=== PATIENT | male | born 1960 | race Caucasian/White ===

== ENCOUNTER 2019-05-20 06:02 | Inpatient (IN) ==
--- NOTE | 2019-05-14 14:51 | Anesthesiology Consultation ---
Date of Service May 14, 2019 Assessment & Plan (1) Encounter for pre-operative examination: Chart Review Chart Review: Acceptable Risk for Surgery and Patient NOT seen in Pre Admission Testing History Surgery Operation Date: 05/20/19 07:15 Proposed Procedures p Navigational Bronchoscopy with ICG with Marking, - Jerrod Basurto MD, FACS s Left Robotic Video Assisted Thoracoscopy with Left Upper Lobe Wedge Resection - Jerrod Basurto MD, FACS Height/Weight Height: 5 ft 8 in Weight: 56.245 kg Allergies Allergy/AdvReac Type Severity Reaction Status Date / Time codeine AdvReac Mild Vomiting Verified 05/14/19 10:26 Medications Home Medications Medication Instructions Recorded Confirmed Last Taken Culturelle Probiotics 1 cap PO DAILY 04/21/19 05/14/19 04/29/19 13:00 Spiriva Respimat 1 puff INHALATION QAM 04/21/19 05/14/19 04/29/19 09:00 albuterol sulfate [ProAir HFA] 1 puff INHALATION Q6H PRN 04/21/19 05/14/19 04/29/19 12:00 carvedilol 3.125 mg PO BID 04/21/19 05/14/19 04/30/19 02:45 fluticasone propion-salmeterol 1 inh INHALATION BID 04/21/19 05/14/19 04/29/19 09:00 [Advair Diskus] ipratropium-albuterol 3 ml INHALATION BID 04/21/19 05/14/19 04/30/19 02:45 pantoprazole [Protonix] 40 mg PO QDL 04/21/19 05/14/19 04/30/19 02:45 sucralfate [Carafate] 1 g PO ACHS 04/21/19 05/14/19 04/29/19 17:00 Past Medical History Medical History Barretts esophagus Cardiomyopathy EF 45% per echo 01/2016. Normal LV function noted on 2014 cardiac cath. Chronic obstructive pulmonary disease Chest CT 03/2019 notes severe emphysema. Patient reported to PCP 01/2019 using nebulizer BID and rare rescue inhaler unless doing strenuous activity. Pt follows with pulm in [place]. Fracture, mandibular NO SURGERY. ~1998. NO PROBLEMS OPENING JAW. GERD (gastroesophageal reflux disease) Lung cancer POSSIBLE, BRONCHOSCOPY DID NOT GIVE DEFINITE RESULT. Past Family History Family History Other No pertinent family history Past Surgical History Surgical History History of bronchoscopy 04/30/19 MAC 3, ETT 8.0, grade view I. Smooth IV induction, atraumatic DL x 1 intubation. History of cardiac cath For dyspnea and abnormal stress test. No intervention performed, "angiographically normal coronaries." History of colonoscopy History of esophagogastroduodenoscopy (EGD) History of nasal septoplasty History of open reduction and internal fixation (ORIF) procedure LEFT FEMUR History of tonsillectomy S/P hardware removal LEFT FEMUR Social History Smoking Status: Former smoker tobacco type: cigarettes Smoking cigarettes per day: 1 PPD X 45 YEARS Do You Dip or Chew Tobacco: No Smoking End Date: QUIT 02/13/2016 Hx Alcohol Use: Yes Alcohol type: beer alcohol intake frequency: a few times a week Hx Substance Use: Yes substance use type: marijuana Last Used Substance Other:: 1-2 MONTHS AGO Testing Laboratory Results 04/23/19 WBC: 5.15 H/H: 16.1/46.2 PLATELETS: 223 SODIUM: 135 POTASSIUM: 4.2 CHLORIDE: 102 CO2: 32 BUN: 12 CREATININE: 0.90 GLUCOSE: 98 Electrocardiogram Date: 04/23/19 Findings: + NSR @ (66) Rightward axis. Nonspecific ST abnormality. Chest X-Ray Date: 04/30/19 FINDINGS: The heart is normal in size. No pleural effusions. No pneumothorax. The lungs are hyperexpanded with moderate emphysematous change. Mild chronic interstitial thickening persists. Left upper lobe nodular density, unchanged. This is better appreciated on the recent chest CT. IMPRESSION: 1. No pneumothorax. 2. Moderate emphysema. 3. Left upper lobe nodular density is again noted. Echocardiogram Date: 02/20/16 EF: 45% Mildly decreased left ventricular function. Normal right ventricular size with normal function. Normal left atrium. Normal right atrium. Normal, trileaflet aortic valve. Normal mitral and tricuspid valves. Mild TR. Mildly increased PASP at 35 mmHg. Normal pulmonic valve. Normal aorta. Stress Test Date: 12/19/14 Resting EF: 55% Stress EKG negative for myocardial ischemia at 87%. Stress echo positive for new wall motion normality at 87% of maximum predicted heart rate. Stress echo shows improvement in the LVEF with stress but with new wall motion of normalities as detailed above given the technical limitation of study (anterior hypokinesis and septal dyskinesis). *pt had subsequent cardiac cath, no stents placed. Cardiac Catheterization Date: 03/09/15 Angiographically normal coronary arteries. Normal LV function. Normal LVEDP. Other Testing Chest CT 04/23/19 IMPRESSION: 1. No change in an irregular 3 x 1 cm left upper lobe opacity since initial chest CT of January 22, 2019. This is indeterminate however a neoplasm is the diagnosis of exclusion. 2. 7 mm right upper lobe nodule which is indeterminate but suspicious for a small neoplasm. 3. Moderate to severe emphysema. 4. No thoracic lymphadenopathy.
[~2019-05-20 06:02] MED LIST: LR 15ML/HR IV SCH
[2019-05-20] MEDS ORDERED: GLYCOPYRROLATE 0.2 MG/ML VIAL ONE (06:46)
[2019-05-20] MEDS ORDERED: ROCURONIUM BROMIDE 10 MG/ML 5 ML VIAL ONE ×2 (06:46→08:56)
[2019-05-20] MEDS ORDERED: ONDANSETRON INJ 2 MG/ML 2 ML VIAL ONE (06:46)
[2019-05-20] MEDS ORDERED: PROPOFOL IV EMULSION 10 MG/ML 20 ML VIAL IV ONE (06:46)
[2019-05-20] MEDS ORDERED: fentaNYL citrate 100 MCG/2 ML VIAL ONE ×2 (06:46→10:48)
[2019-05-20] MEDS ORDERED: DEXAMETHASONE SOD INJ 4 MG/ML VIAL ONE (06:46)
[2019-05-20] MEDS ORDERED: MIDAZOLAM HCL 1 MG/ML 2ML VIAL ONE (06:46)
[2019-05-20] MEDS ORDERED: LIDOCAINE HCL 2% 2 ML VIAL/AMP(20MG/ML) INFIL ONE (06:46)
[2019-05-20] MEDS ORDERED: NEOSTIGMINE METHYLSULFATE 5 MG/5 ML SYR ONE (06:46)
--- NOTE | 2019-05-20 06:49 | History & Physical Bridge Note ---
Date of Service May 20, 2019 History & Physical Bridge Note I have examined the patient, reviewed the History & Physical and in the interval since the performance of the History & Physical I have noted the following changes of clinical significance: no changes noted
[2019-05-20] MEDS ORDERED: BUPIVACAINE LIPOSOME 1.3% 266 MG/20 ML VIAL ONE (06:59)
[2019-05-20] MEDS ORDERED: BUPIVACAINE 0.5 % 5 MG/1 ML MPF 30ML VIAL ONE (06:59)
[2019-05-20] MEDS ORDERED: SODIUM CHLORIDE 0.9% PF 50 ML VIAL ONE (06:59)
[2019-05-20] MEDS ORDERED: PROMETHAZINE HCL 6.25 MG in SODIUM CHLORIDE 0.9% 50 ML IV PRN (07:09)
[2019-05-20] MEDS ORDERED: ePHEDrine sulfate 50 MG/ML AMP IV PRN (07:09)
[2019-05-20] MEDS ORDERED: ONDANSETRON INJ 2 MG/ML 2 ML VIAL IV PRN ×2 (07:09→12:40)
[2019-05-20] MEDS ORDERED: HYDROmorphone INJ 2 MG/ML SYR/VIAL IV PRN (07:09)
[2019-05-20] MEDS ORDERED: ATROPINE SULFATE 0.1 MG/ML 10ML SYR IV PRN (07:09)
[2019-05-20] MEDS ORDERED: INDOCYANINE GREEN 25 MG/10 ML INJ ONE (07:58)
--- NOTE | 2019-05-20 08:50 | Fluoroscopy Report ---
FL chest 1V frontal CLINICAL HISTORY: NAVIGATIONAL BRONCH IN OR COMPARISON STUDY: 04/30/2019 FLUOROSCOPY TIME: 54 seconds. NUMBER OF FLUOROSCOPIC IMAGES: 1 FINDINGS: A single intraprocedural fluoroscopic spot image demonstrates a bronchoscope with a left up per lobe catheter. IMPRESSION: Single intraprocedural image demonstrating a bronchoscope with a left upper lobe cathete r. Electronically signed by: Kalia Jones M.D. 05/20/2019 8:49 AM
[2019-05-20] MEDS ORDERED: CLINDAMYCIN 600 MG in DEXTROSE 5% 50 ML IV SCH (10:15)
--- NOTE | 2019-05-20 10:47 | Post Operative Brief Note ---
Immediate Post Op Note v1 Date of Surgery May 20, 2019 Pre & Post Diagnosis Operation Date: 05/20/19 07:35 Pre-Op Diagnosis: LEFT LUNG MASS Post-Op Diagnosis: APPARENT BENIGN LEFT UPPER LOBE LUNG MASS Procedure Operation Date: 05/20/19 07:35 Actual Procedures p Navigational Bronchoscopy with ICG with Marking, - Jerrod Basurto MD, FACS s Left Robotic Video Assisted Thoracoscopy with Left Upper Lobe Wedge Resection(Left) - Jerrod Basurto MD, FACS Surgeon Jerrod Basurto MD, FACS Tub Operator Beni HERNÁNDEZ Estimated Blood Loss 20 Findings Consistent with Post-Op Diagnosis Drains Chest Tube
[2019-05-20] MEDS ORDERED: METOCLOPRAMIDE HCL INJ 5 MG/ML 2 ML VIAL IV ONE (11:05)
--- NOTE | 2019-05-20 11:18 | XRay Report ---
XR chest 1V portable CLINICAL HISTORY: 58 years-old Male presenting with left wedge resection. TECHNIQUE: Portable upright AP view of the chest was obtained. COMPARISON: 04/30/2019. FINDINGS: Cardiomediastinal silhouette normal. Lungs are hyperinflated as on prior. Suture margins now noted al charlie the left upper lung with a small left apical pneumothorax. A large bore left pleural drain is pos itioned at the left apex. Right lung and pleural space clear. Soft tissue emphysema noted along the b ase of the left neck. Osseous structures normal. Upper abdomen normal. IMPRESSION: 1. Small left apical pneumothorax with postsurgical changes of the left apex. 2. Left pleural drain in place. 3. Underlying emphysema. Electronically signed by: Bladimir Lozoya M.D. 05/20/2019 11:16 AM
[2019-05-20] MEDS: fentaNYL citrate 100 MCG/2 ML VIAL IV PRN ×2 (11:25→11:33)
--- NOTE | 2019-05-20 11:56 | Anesthesiology Progress Note ---
Date of Service May 20, 2019 Anesthesia Post Procedure Vital Signs Vital Signs: Temp Pulse Pulse Resp BP Pulse Ox 05/20/19 11:35 36.5 C 88 12 137/77 100 05/20/19 11:25 93 H 19 124/91 100 05/20/19 11:15 94 H 15 121/108 H 100 05/20/19 11:06 36.0 C L 98 H 28 H 124/91 100 05/20/19 06:19 36.6 C 81 20 148/89 H 99 Pain Intensity Left Lateral Chest: Pain Intensity: 4 Transfer of Care Handoff Completed per policy Notes Mental Status: alert / awake / arousable Patient Amnestic to Procedure: Yes Nausea / Vomiting: adequately controlled Pain: adequately controlled Airway Patency, RR, SpO2: stable & adequate BP & HR: stable & adequate Hydration State: stable & adequate Anesthetic Complications: no major complications apparent
[2019-05-20] MEDS ORDERED: ALBUTEROL HFA 8 GM INHALER INH PRN (13:00)
[2019-05-20] MEDS: ACETAMINOPHEN 1,000 MG/100 ML VIAL IV SCH ×2 (13:58→20:07)
[2019-05-20] MEDS: PANTOprazole 40 MG TAB PO SCH (13:58)
[2019-05-20] MEDS: SUCRALFATE 1 GM TAB PO SCH ×3 (13:58→20:19)
[2019-05-20] MEDS: METOCLOPRAMIDE HCL INJ 5 MG/ML 2 ML VIAL IV SCH ×2 (14:00→20:20)
[2019-05-20] MEDS: D5W AND 1/2NSS 1,000 ML IV SCH (15:10)
[2019-05-20] MEDS: ALBUT/IPRATROP 3MG/0.5MG NEB 3 ML VIAL INH SCH (19:25)
[2019-05-20] MEDS: FLUTICASONE/SALMETEROL 250/50 (ADVAIR) 14 PUFF/1 INHALER INH SCH (20:08)
[2019-05-20] MEDS: CARVEDILOL 3.125 MG TAB PO SCH (20:19)
[2019-05-20] MEDS: DOCUSATE SODIUM 100 MG CAP PO SCH (20:19)
--- NOTE | 2019-05-20 20:47 | Operative Report ---
DATE OF OPERATION: 05/20/2019 DATE OF PROCEDURE: 05/20/2019 PREOPERATIVE DIAGNOSES: 1. Bilateral lung nodules, left greater than right. 2. Severe bullous emphysema. 3. Long history of cigarette smoking. POSTOPERATIVE DIAGNOSIS: Apparent granulomatous disease, left upper lobe. PROCEDURE: 1. Electromagnetic navigational bronchoscopy with marking of left upper lobe mass with indocyanine green dye. 2. Robot-assisted left thoracoscopy with wedge resection of mass located with fluorescence for indocyanine green dye. 3. Lymph node biopsy. SURGEON: Jerrod Basurto MD DIRECTOR [employer]: EDGAR Plunkett (MrJaclyn Rosanne was present for the entire case and was at the patient's bedside while I was at the console). ANESTHESIA: General anesthesia with endotracheal intubation. INDICATIONS FOR PROCEDURE AND FINDINGS: This is an unfortunate 58-year-old male began smoking at age 6, quit about 2 years ago. 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 Needless to say, he looks older than his stated age. He has terrible lung function with terrible pulmonary function studies, found to have bilateral upper lobe masses. The right was very small, left one is a bit larger and a bit more concerning in appearance. I performed a navigational bronchoscopy and endobronchial ultrasound, which showed no evidence of lymph node metastases and we did not get a diagnosis in either mass. There were some inflammatory cells. I presented this patient at our multidisciplinary cancer conference and there was a consensus at the group that we should wedge out this left upper lobe nodule if he probably would tolerate it. We would then continue to follow this much smaller right upper lobe nodule. On 05/20/2019, the patient underwent an uncomplicated electromagnetic navigational bronchoscopy, although I did see a mucosal abnormality in the left mainstem bronchus, I biopsied this with not only a forceps, but also a cryoprobe. We had bleeding from this, controlled with the cryoprobe. I then performed the registering the airways and did an electromagnetic navigational bronchoscopy which popping right out to this mass. We injected the indocyanine dye. We then currently been performed a wedge resection of this mass. We were able to locate it with the fluorescence. This was sent for frozen section. We sent 3 different specimens off and all of them came back as apparent granulomatous disease with no evidence of malignancy, although they did see abnormalities. I felt we had removed this in its entirety. I did biopsy on couple of lymph nodes. He tolerated it very well. He was extubated in the room with negligible blood loss and really did not have much of an air leak. PROCEDURE IN DETAIL: The patient was brought to the operating room and laid in supine position. General anesthesia was induced and endotracheal intubation was performed. After appropriate timeout had been called and antibiotics given, a fiberoptic bronchoscope was placed into the endotracheal tube. Upon going down, I was a bit surprised to see an abnormality in the left mainstem bronchus. I did not notice this before. I did a forceps biopsy of this and it is quite bled rather well. I saw no other endobronchial abnormalities. Using a cryoprobe, I went down and froze this tissue and I did take some biopsies, not only with the forceps, but with a cryoprobe also and then controlled the bleeding with the cryoprobe. We irrigated this out and after registering the airways, I then went out to the upper lobe bronchus and was able to get to the mass quite nicely. There was an abnormality noted on the radial ultrasound. We then injected 0.5 mL of indocyanine green dye with 0.5 mL of air and withdrew the needle from the navigational probe. The fiberoptic bronchoscope was then removed. There was no further bleeding. The patient was switched over to a double lumen tube. This now properly placed. The patient was placed in the right lateral decubitus position. The left chest was prepped and draped in usual sterile fashion. Four different incisions were made from the robot with two 8 mm ports anterior and posterior and a 8.5 mm port left in the midline. We then made an assistant director of financial aid port above the diaphragm anteriorly. It should be noted that we did mix Exparel 266 mg in 20 mL of solution with 30 mL of 0.5% Marcaine and 250 mL of normal saline injected in each of the incisions. Upon entering the chest, we did not see much in the way of adhesions, so we then performed a block with this Exparel solution intrathoracically from the 2nd to the 11th rib. After doing this, just a few adhesions, we took down sharply without difficulty. I then the lower lobe and the upper lobe posteriorly and after some close inspection, we found the indocyanine green dye. We wedged out 3 separate areas to make sure we included this and the frozen section showed possible granulomatous disease, but no evidence of malignancy. We stopped here. Really not have much of an air leak. I did biopsy level 5 lymph node and this looked benign. A 24-Faroese chest tube was placed through separate stab wound and directed towards the apex and the other incisions were closed with 0 Vicryl for the muscle layers and 4-0 Monocryl in running subcuticular fashion. We really did not have much of an air leak and his chest x-ray looked quite good after surgery. He tolerated well. I attest to the content of the Intraoperative Record and any orders documented therein. Any exceptions are noted below. MTDD
[2019-05-21] MEDS: D5W AND 1/2NSS 1,000 ML IV SCH ×2 (00:24→10:15)
[2019-05-21] MEDS: ACETAMINOPHEN 1,000 MG/100 ML VIAL IV SCH ×2 (04:34→12:38)
[2019-05-21] MEDS: METOCLOPRAMIDE HCL INJ 5 MG/ML 2 ML VIAL IV SCH (04:34)
[2019-05-21] MEDS ORDERED: CLINDAMYCIN 600 MG/54 ML BAG IV SCH (06:00)
--- NOTE | 2019-05-21 06:54 | XRay Report ---
XR chest 1V portable CLINICAL HISTORY: left wedge resection postoperative COMPARISON STUDY: 05/20/2019 FINDINGS: Lungs are grossly clear. Increased density medial aspect left apex is unchanged. There is a minimal left apical residual pneumothorax. IMPRESSION: 1. Improved left apical pneumothorax with a minimal to mild residual. 2. Unchanging postoperative changes left apex. The above report was generated using voice recognition software. It may contain grammatical, syntax or spelling errors. Electronically signed by: Jose Hull M.D. 05/21/2019 6:52 AM
[2019-05-21] MEDS: SUCRALFATE 1 GM TAB PO SCH ×4 (07:14→20:44)
[2019-05-21] MEDS: MoRPHine SULFATE 2 MG/ML CARP IV PRN (07:15)
[2019-05-21 07:22] LABS: Hematocrit (blood only) 37.7 % (42-52); Hemoglobin 13.1 g/dL (14.0-18.0); Mean Corpuscular Hgb Conc 34.7 g/dL (32-36); Mean Corpuscular Volume 93.3 fL (80-100); Mean Platelet Volume 8.9 fL (7.4-10.4); Platelet Count 259 K/uL (130-400); RDW Coefficient of Variation 12.5 % (11.5-14.5); RDW Standard Deviation 42.4 fL (36.4-46.3); Red Blood Count 4.04 M/uL (4.7-6.1); White Blood Count 11.91 K/uL (4.8-10.8)
[2019-05-21] MEDS: ALBUT/IPRATROP 3MG/0.5MG NEB 3 ML VIAL INH SCH ×2 (07:23→19:12)
[2019-05-21 07:44] LABS: Prothrombin Time 10.6 Seconds (9.0-12.0)
[2019-05-21 07:52] LABS: Creatinine Clr Calc Pharmacy 79.3 ml/min; Est GFR (African American) 113.9; Est GFR (Non-African American) 98.3
[2019-05-21] MEDS: TIOTROPIUM BROMIDE 5 PUFF/90 MCG INH INH SCH (08:09)
[2019-05-21] MEDS: ENOXAPARIN INJ 40 MG/0.4 ML SYR SQ SCH (08:10)
[2019-05-21] MEDS: DOCUSATE SODIUM 100 MG CAP PO SCH ×2 (08:11→20:44)
[2019-05-21] MEDS: FLUTICASONE/SALMETEROL 250/50 (ADVAIR) 14 PUFF/1 INHALER INH SCH ×2 (08:11→20:44)
[2019-05-21] MEDS: CARVEDILOL 3.125 MG TAB PO SCH ×2 (08:11→20:44)
--- NOTE | 2019-05-21 08:30 | Progress Note ---
DATE: 05/21/2019 Mr. Cash was seen today on 05/21/2019. Yesterday, I performed an electromagnetic navigational bronchoscopy with marking with indocyanine green dye. I then performed a wedge resection with thoracoscopy with fluorescence to locate this nodule. It turns out that this is apparently granulomatous disease. We took generous samples. He has tolerated this surprisingly well. He is on room air. He is ambulating in the hallway. He still has a small air leak, so his tube will have to be in for another day or two. I am quite pleased with him. He did much better than I expected with this rather poor lung function. I am also quite pleased that we are dealing with a granuloma. His x-ray looks quite good today.
[2019-05-21] MEDS ORDERED: LACTOBAC RHAMNOSUS GG INULIN PO SCH (09:00)
--- NOTE | 2019-05-21 10:54 | Anesthesiology Progress Note ---
Date of Service May 21, 2019 Anesthesia Post Procedure Vital Signs Vital Signs: Temp Pulse Pulse Pulse Resp BP BP 05/21/19 09:30 36.6 C 71 16 112/71 05/21/19 07:23 83 16 05/21/19 05:29 36.9 C 89 14 108/70 05/21/19 01:34 36.8 C 85 14 101/64 05/20/19 23:30 36.8 C 91 H 14 103/59 L 05/20/19 21:43 36.8 C 95 H 18 98/57 L 05/20/19 20:15 98 H 20 107/66 05/20/19 20:10 05/20/19 19:53 36.5 C 103 H 18 107/70 05/20/19 19:25 108 H 16 05/20/19 17:38 37 C 105 H 18 113/76 05/20/19 16:38 36.8 C 99 H 18 105/74 05/20/19 15:30 36.5 C 98 H 18 102/68 05/20/19 14:54 36.4 C L 105 H 18 98/65 L 05/20/19 13:37 36.9 C 108 H 18 106/68 05/20/19 12:30 36.4 C L 92 H 16 120/80 05/20/19 12:08 88 14 125/89 05/20/19 11:55 90 15 125/93 05/20/19 11:45 36.5 C 88 12 137/77 05/20/19 11:35 90 13 124/83 05/20/19 11:25 93 H 19 124/91 05/20/19 11:15 94 H 15 121/108 H 05/20/19 11:06 36.0 C L 98 H 28 H 124/91 Pulse Ox Pulse Ox 05/21/19 09:30 96 05/21/19 07:23 93 05/21/19 05:29 92 05/21/19 01:34 93 05/20/19 23:30 93 05/20/19 21:43 93 93 05/20/19 20:15 92 05/20/19 20:10 92 05/20/19 19:53 94 05/20/19 19:25 95 05/20/19 17:38 95 05/20/19 16:38 94 05/20/19 15:30 95 06/27/19 14:54 95 05/20/19 13:37 94 05/20/19 12:30 96 05/20/19 12:08 100 05/20/19 11:55 100 05/20/19 11:45 100 05/20/19 11:35 100 05/20/19 11:25 100 05/20/19 11:15 100 05/20/19 11:06 100 Pain Intensity Left Lateral Chest: Pain Intensity: 7 Notes Mental Status: alert / awake / arousable and participated in evaluation Patient Amnestic to Procedure: Yes Nausea / Vomiting: adequately controlled Pain: adequately controlled Airway Patency, RR, SpO2: stable & adequate BP & HR: stable & adequate Hydration State: stable & adequate Anesthetic Complications: no major complications apparent and Pt Satisfied with anesthetic care
[2019-05-21] MEDS: PANTOprazole 40 MG TAB PO SCH (11:38)
[2019-05-21] MEDS: ACETAMINOPHEN 325 MG TAB PO SCH ×2 (18:12→23:43)
[2019-05-22] MEDS: ALBUTEROL 0.083% NEBU SOLN 3 ML VIAL NEB PRN ×2 (04:58→14:27)
[2019-05-22] MEDS: ACETAMINOPHEN 325 MG TAB PO SCH ×4 (05:33→23:41)
[2019-05-22] MEDS: OXYCODONE HCL IR 5 MG TAB (IMMEDIATE RELEASE) PO PRN ×3 (06:05→14:50)
[2019-05-22] MEDS: ALBUT/IPRATROP 3MG/0.5MG NEB 3 ML VIAL INH SCH ×2 (07:13→19:04)
--- NOTE | 2019-05-22 07:29 | XRay Report ---
SINGLE VIEW CHEST CLINICAL HISTORY: Status post left-sided pulmonary resection. FINDINGS: An AP, portable, upright chest radiograph is compared to study dated 05/21/2019 and correlat ed with chest CT dated 04/23/2019. The examination is degraded by portable technique and apical lordot ic positioning. The cardiomediastinal silhouette is unremarkable, noting atherosclerotic calcificat ion of the thoracic aorta. Advanced emphysema and chronic interstitial thickening are similar to prev ious. There is postoperative change and volume loss consistent with left upper lobe resection. A ches t tube at the left apex is unchanged in position. There is likely trace residual left apical pneumoth orax. Suture material projects over the left upper lobe. No airspace consolidation or large pleural e ffusion is seen. The bony thorax is grossly intact. Subcutaneous emphysema is noted along the left ch est wall and in the left lower neck. IMPRESSION: 1. Advanced emphysema and volume loss from left upper lobe pulmonary resection. 2. There is likely trace residual left apical pneumothorax. 3. No airspace consolidation or large pleural effusion is identified. Electronically signed by: Maximus Jacobsen M.D. 05/22/2019 7:28 AM
[2019-05-22] MEDS: SUCRALFATE 1 GM TAB PO SCH ×4 (07:56→20:22)
[2019-05-22] MEDS: DOCUSATE SODIUM 100 MG CAP PO SCH ×2 (07:56→20:22)
[2019-05-22] MEDS: ENOXAPARIN INJ 40 MG/0.4 ML SYR SQ SCH (07:57)
[2019-05-22] MEDS: FLUTICASONE/SALMETEROL 250/50 (ADVAIR) 14 PUFF/1 INHALER INH SCH ×2 (07:58→20:22)
[2019-05-22] MEDS: CARVEDILOL 3.125 MG TAB PO SCH ×2 (07:58→20:22)
[2019-05-22] MEDS: TIOTROPIUM BROMIDE 5 PUFF/90 MCG INH INH SCH (07:59)
[2019-05-22] MEDS: PANTOprazole 40 MG TAB PO SCH (11:04)
--- NOTE | 2019-05-22 11:34 | Progress Note ---
DATE: 05/22/2019 Mr. Cash was seen today on 05/22/2019. Two days ago, the patient underwent a robotic wedge resection and after the navigational bronchoscopy for what turned out to be a probable granulomatous disease. The fungal stains have been negative for this. On room air, the patient is 93%, although he had some trouble last night. He stated he was coughing quite a bit. The narcotics and then a nebulizer treatment helped him to cough up some bloody sputum and he felt much better. He has decreased breath sounds, but no wheezing. He still has a tiny air leak from his chest tube and we will want to keep that in, but the patient is ambulating quite a bit, I think he will do well with this. MTDD
[2019-05-22] MEDS: MoRPHine SULFATE 2 MG/ML CARP IV PRN (20:12)
[2019-05-23] MEDS: OXYCODONE HCL IR 5 MG TAB (IMMEDIATE RELEASE) PO PRN ×4 (03:42→23:37)
[2019-05-23 05:24] LABS: Hematocrit (blood only) 36.3 % (42-52); Hemoglobin 12.4 g/dL (14.0-18.0); Mean Corpuscular Hgb Conc 34.2 g/dL (32-36); Mean Platelet Volume 8.9 fL (7.4-10.4); Platelet Count 231 K/uL (130-400); RDW Coefficient of Variation 12.7 % (11.5-14.5); RDW Standard Deviation 43.8 fL (36.4-46.3); Red Blood Count 3.82 M/uL (4.7-6.1); White Blood Count 8.03 K/uL (4.8-10.8)
[2019-05-23 05:33] LABS: Creatinine Clr Calc Pharmacy 101.1 ml/min; Est GFR (African American) 125.8; Est GFR (Non-African American) 108.6
[2019-05-23] MEDS: ACETAMINOPHEN 325 MG TAB PO SCH ×4 (05:56→23:37)
[2019-05-23] MEDS: ALBUT/IPRATROP 3MG/0.5MG NEB 3 ML VIAL INH SCH ×2 (07:27→19:45)
[2019-05-23] MEDS: SUCRALFATE 1 GM TAB PO SCH ×4 (07:41→20:23)
[2019-05-23] MEDS: MoRPHine SULFATE 2 MG/ML CARP IV PRN (07:44)
[2019-05-23] MEDS ORDERED: POLYETHYLENE (MIRALAX) 17 GM PACK PO PRN (08:53)
[2019-05-23] MEDS: FLUTICASONE/SALMETEROL 250/50 (ADVAIR) 14 PUFF/1 INHALER INH SCH ×2 (09:03→20:23)
[2019-05-23] MEDS: CARVEDILOL 3.125 MG TAB PO SCH ×2 (09:04→20:23)
[2019-05-23] MEDS: DOCUSATE SODIUM 100 MG CAP PO SCH ×2 (09:04→20:23)
[2019-05-23] MEDS: ENOXAPARIN INJ 40 MG/0.4 ML SYR SQ SCH (09:05)
[2019-05-23] MEDS: TIOTROPIUM BROMIDE 5 PUFF/90 MCG INH INH SCH (09:05)
--- NOTE | 2019-05-23 09:16 | Progress Note ---
DATE: 05/23/2019 Mr. Cash was seen today. He has not moved his bowels, but otherwise has done well. I may give him some MiraLax today. He is on room air. His air leak is almost resolved. He is draining very little from his chest tube. He is ambulating quite a bit. He had some mild end expiratory wheezing, but really no changes. We will see how it looks tomorrow and hopefully, we can get his chest tube out and get him out.
[2019-05-23] MEDS ORDERED: POLYETHYLENE (MIRALAX) 17 GM PACK PO ONE (09:30)
[2019-05-23] MEDS: PANTOprazole 40 MG TAB PO SCH (11:18)
[2019-05-24] MEDS: ACETAMINOPHEN 325 MG TAB PO SCH ×3 (05:11→17:30)
--- NOTE | 2019-05-24 07:16 | XRay Report ---
XR chest 1V portable HISTORY: 58 years-old Male lung resection status post left-sided pulmonary resection COMPARISON: Chest radiograph 05/22/2018 TECHNIQUE: Portable AP view of the chest FINDINGS: Postoperative changes of the left lung apex redemonstrated. There are stable positioning of the left- sided chest tube. Subcutaneous emphysema about the left lateral chest wall. Small left-sided pneumoth orax, pleural separation of approximately 2.4 cm. Bones of the chest appear grossly intact. The right lung is clear. Cardiac silhouette is unremarkable. IMPRESSION: Postoperative changes of the left lung with small left apical pneumothorax The above report was generated using voice recognition software. It may contain grammatical, syntax o r spelling errors. Electronically signed by: Jean Paul Puri M.D. 05/24/2019 7:15 AM
[2019-05-24] MEDS: ALBUT/IPRATROP 3MG/0.5MG NEB 3 ML VIAL INH SCH ×2 (07:31→19:26)
[2019-05-24] MEDS: SUCRALFATE 1 GM TAB PO SCH ×4 (08:09→20:15)
[2019-05-24] MEDS: DOCUSATE SODIUM 100 MG CAP PO SCH ×2 (08:10→20:15)
[2019-05-24] MEDS: CARVEDILOL 3.125 MG TAB PO SCH ×2 (08:11→20:15)
[2019-05-24] MEDS: FLUTICASONE/SALMETEROL 250/50 (ADVAIR) 14 PUFF/1 INHALER INH SCH ×2 (08:11→20:15)
[2019-05-24] MEDS: ENOXAPARIN INJ 40 MG/0.4 ML SYR SQ SCH (08:11)
[2019-05-24] MEDS: TIOTROPIUM BROMIDE 5 PUFF/90 MCG INH INH SCH (08:12)
[2019-05-24] MEDS: PANTOprazole 40 MG TAB PO SCH (11:50)
--- NOTE | 2019-05-24 12:23 | Progress Note ---
DATE: 05/24/2019 Mr. Cash was seen today on 05/24/2019. The patient is now postop day #4 status post a robot-assisted thoracoscopic lung biopsy of what turned out to be a granulomatous mass. He looks quite good. He still has a tiny intermittent air leak and I was quite pleased with his x-ray, although he does have some mild decrease in expansion in the upper lobe. He moved his bowels. He has been ambulating in the hallway. He still has some mild wheezing, but quite frankly I am happy with him. His incisions are clean. He has very little in the way of pain. I will hopefully be able to get this tube out in the near future.
[2019-05-24] MEDS: OXYCODONE HCL IR 5 MG TAB (IMMEDIATE RELEASE) PO PRN (18:07)
[2019-05-25] MEDS: ACETAMINOPHEN 325 MG TAB PO SCH ×3 (00:01→11:53)
[2019-05-25] MEDS: OXYCODONE HCL IR 5 MG TAB (IMMEDIATE RELEASE) PO PRN (03:56)
[2019-05-25] MEDS: ALBUT/IPRATROP 3MG/0.5MG NEB 3 ML VIAL INH SCH (06:53)
--- NOTE | 2019-05-25 07:58 | XRay Report ---
XR chest 1V portable CLINICAL HISTORY: lung resection COMPARISON STUDY: 05/24/2019 FINDINGS: The cardiac and distal contours remain stable. There is persistent subcutaneous emphysema o n the left. There are postsurgical changes within the left upper lung zone. There is superior left hi lar retraction. There is a 21 mm left apical pneumothorax. Left-sided chest tube remains unchanged in position.[ IMPRESSION: 1. Persistent small left apical pneumothorax with maximal pleural separation of 21 mm Electronically signed by: Kalia Jones M.D. 05/25/2019 7:57 AM
[2019-05-25] MEDS: DOCUSATE SODIUM 100 MG CAP PO SCH (08:17)
[2019-05-25] MEDS: SUCRALFATE 1 GM TAB PO SCH ×2 (08:18→11:53)
[2019-05-25] MEDS: ENOXAPARIN INJ 40 MG/0.4 ML SYR SQ SCH (08:18)
[2019-05-25] MEDS: CARVEDILOL 3.125 MG TAB PO SCH (08:18)
[2019-05-25] MEDS: TIOTROPIUM BROMIDE 5 PUFF/90 MCG INH INH SCH (08:19)
[2019-05-25] MEDS: FLUTICASONE/SALMETEROL 250/50 (ADVAIR) 14 PUFF/1 INHALER INH SCH (08:19)
--- NOTE | 2019-05-25 10:28 | XRay Report ---
SINGLE VIEW CHEST CLINICAL HISTORY: Pneumothorax. Status post left-sided pulmonary resection. FINDINGS: An AP, portable, upright chest radiograph is compared to study dated 05/25/2019 and correlate d with chest CT dated 04/23/2019. The examination is degraded by portable technique and apical lordoti c positioning. The cardiomediastinal silhouette is unremarkable, noting atherosclerotic calcificati on of the thoracic aorta. Advanced emphysema and chronic interstitial thickening are similar to previ ous. There is postoperative change and volume loss consistent with left upper lobe resection. A chest tube at the left apex is unchanged in position. A small left apical pneumothorax persists. Suture ma terial projects over the left upper lobe. No airspace consolidation is seen. There is trace pleural f luid at the left lung base. The bony thorax is grossly intact. Subcutaneous emphysema is noted along the left chest wall. IMPRESSION: 1. Advanced emphysema and volume loss from left upper lobe pulmonary resection are again noted. 2. A left upper lobe chest tube is unchanged in position and a small left apical pneumothorax persist s. 3. No airspace consolidation is identified. Electronically signed by: Maximus Jacobsen M.D. 05/25/2019 10:27 AM
--- NOTE | 2019-05-25 10:35 | XRay Report ---
SINGLE VIEW CHEST CLINICAL HISTORY: Status post chest tube removal. FINDINGS: An AP, portable, upright chest radiograph is compared to study dated 05/25/2019 and correlate d with chest CT dated 03/24/2019. The cardiomediastinal silhouette is unremarkable noting atherosclerot ic calcification of the thoracic aorta. There is volume loss from left-sided pulmonary resection. Adv anced emphysema and chronic interstitial thickening are similar to previous. The left-sided chest tub e has been removed. Suture material projects over the left upper lobe. A trace left apical pneumothor ax likely persists. Atelectasis is noted at the left lung base. The bony thorax is grossly intact. IMPRESSION: 1. Advanced emphysema and postoperative change from left-sided pulmonary resection are again noted. 2. A left-sided chest tube has been removed. A trace left apical pneumothorax likely persists. Electronically signed by: Maximus Jacobsen M.D. 05/25/2019 10:34 AM
[2019-05-25] MEDS: PANTOprazole 40 MG TAB PO SCH (11:53)
--- NOTE | 2019-05-26 00:01 | Discharge Summary ---
DISCHARGE DIAGNOSES: 1. Inflammatory mass, left upper lobe. 2. Mass, right upper lobe. HISTORY OF PRESENT ILLNESS AND HOSPITAL COURSE: This is a 58-year-old with terrible lung function, who started smoking at age 6. He was found to have a mass in his right upper lobe which PET scan showed was hypermetabolic. As his lungs were so poor, we took him specifically for a lung biopsy. On 05/20/2019, the patient underwent an uncomplicated robot-assisted thoracoscopic left upper lobe wedge biopsy after an electromagnetic navigational bronchoscopy and marking with indocyanine green dye. We were easily able see the dye and wedge this out. It turns out this is granulomatous inflammation. We have not grown anything out. The patient has very poor lungs and even though we used reinforce bi, he still had an air leak. The air leak got smaller and smaller over the course of the next several days and on postop day #6, we removed his chest tube and I was quite pleased with a tiny pneumothorax at the apex. He tolerated this much better and I thought he would. He is on room air, ambulating in the hallway with very little in the way of pain. I will see him back in the office in 1 week with an x-ray.
== END 2019-05-25 13:32 | disposition home or self-care (01) | DRG 168 ==
LOC: ASU 06:02 → 3W 10:52